=== PATIENT | male | born 1995 | race African-American/Black ===

== ENCOUNTER 2025-06-14 01:35 | Emergency (ER) | payer SELFPAY ==
[~2025-06-14] VITALS: Ht 172.7 cm; Wt 61.0 kg
[2025-06-14 01:42] VITALS: BP 127/84; PULSE 79; RESP 14; TEMP 97.6; O2SAT 99
== END 2025-06-14 03:10 | disposition left against medical advice (07) ==
LOC: ER 01:35
DX: R05.9 Cough, unspecified (principal); J00 Acute nasopharyngitis [common cold]; R09.81 Nasal congestion
CPT/HCPCS: 99281